=== PATIENT | male | born 1940 | race Caucasian/White ===

== ENCOUNTER → 2019-09-29 | Outpatient (CLI) | payer MEDICARE, OTHER ==
[~2019-09-29] MED LIST: ADALAT CC60 MG PO; AMITRIPTYLINE H25 M2 PO; CHEST CONGESTI400 MG PO; CRESTOR10 MG PO; CRESTOR40 MG PO; DITROPAN XL10 MG PO; FERROUS SULFAT325 MG PO; FIBER LAX625 MG PO; FLONASE 0.05%50 MCG NASAL; FORADIL12 MCG INH; GUAIFENESIN400 MG PO; IRON325 PO; NAPROSYN500 MG PO; NORCO 5-325 TA1 EACH PO; PRILOSEC40 MG PO; PROVENTIL HFA6.7 G1 INH; SPIRIVA18 MCG INH; ZYRTEC 10 MG TA10 MG PO; ZYRTEC10 MG PO
--- NOTE | 2019-09-29 14:11 | 2DMMODE ---
[place] [address] 2 D/M-MODE ECHOCARDIOGRAM Name: CLEMENTINA HOWE Room: [facility]#: [id number] Admission: 09/29/19 Attend Phys: Duarte Renteria, Discharge: Date of : 36 Date of Service: 09/29/19 1410 Report #: [id number] THIS REPORT FOR: //name// APPROVED REPORT Study performed: 09/29/2019 13:00:02 EXAM: Comprehensive 2D, Doppler, and color-flow Echocardiogram Patient Location: Out-Patient BSA: 2.05 HR: 108 bpm BP: 145/72 mmHg Other Information Study Quality: Good Indications COPD Atrial Fibrillation Dyspnea 2D Dimensions IVSd: 11.92 (7-11mm) LVOT Diam: 20.80 (18-24mm) LVDd: 48.81 mm PWd: 8.41 (7-11mm) Ascending Ao: 38.73 (22-36mm) LVDs: 28.64 (25-40mm) Aortic Root: 31.16 mm Volumes Left Atrial Volume (Systole) LA ESV Index: 33.60 mL/m2 Aortic Valve AoV Peak Sampson.: 1.01 m/s AO Peak Gr.: 4.12 mmHg LVOT Max P.18 mmHg AO Mean Gr.: 2.49 mmHg LVOT Mean P.65 mmHg LVOT Max V: 0.89 m/s AO V2 VTI: 17.65 cm LVOT Mean V: 0.60 m/s RENAN (VTI): 2.67 cm2 LVOT V1 VTI: 13.89 cm Mitral Valve MV Decel. Time: 160.71 ms MV PHT: 46.61 ms MVA (PHT): 4.72 [place]2 [place] [address] 2 D/M-MODE ECHOCARDIOGRAM Name: CLEMENTINA HOWE Room: [facility]#: [id number] Admission: 09/29/19 Attend Phys: Duarte Renteria, Discharge: Date of : 36 Date of Service: 09/29/19 1410 Report #: [id number] TDI Medial E' Sampson.: 0.17 m/s Lateral E' Sampson.: 0.16 m/s Pulmonary Valve PV Peak Sampson.: 0.86 m/s PV Peak Gr.: 2.95 mmHg Tricuspid Valve RAP Estimate: 5.00 mmHg TR Peak Gr.: 30.34 mmHg RVSP: 35.34 mmHg PA Pressure: 35.34 mmHg Left Ventricle The left ventricle is normal size. There is normal LV segmental wall motion. There is normal left ventricular wall thickness. Left ventricular systolic function is normal. The left ventricular ejection fraction is within the normal range. LVEF is 60-65%. This study is not technically sufficient to allow evaluation of the LV diastolic function due to atrial fibrillation. Right Ventricle The right ventricle is normal size. The right ventricular systolic function is normal. Atria Left atrium is mildly dilated. Right atrium is moderately dilated. Aortic Valve Mild aortic valve sclerosis. No aortic regurgitation is present. There is no aortic valvular stenosis. Mitral Valve The mitral valve is normal in structure. Mild to moderate mitral regurgitation. No evidence of mitral valve stenosis. Tricuspid Valve The tricuspid valve is normal in structure. Mild tricuspid regurgitation. Pulmonic Valve The pulmonary valve is normal in structure. Mild pulmonic regurgitation[place] [address] 2 D/M-MODE ECHOCARDIOGRAM Name: CLEMENTINA HOWE Room: [facility]#: [id number] Admission: 09/29/19 Attend Phys: Duarte Renteria, Discharge: Date of : 36 Date of Service: 09/29/19 1410 Report #: [id number] The aortic root is normal in size. IVC is dilated and collapses <50% with inspiration. Pericardium There is no pericardial effusion. <Conclusion> The left ventricle is normal size. There is normal left ventricular wall thickness. Left ventricular systolic function is normal. The left ventricular ejection fraction is within the normal range. LVEF is 60-65%. This study is not technically sufficient to allow evaluation of the LV diastolic function due to atrial fibrillation. The right ventricle is normal size. Right atrium is moderately dilated. Mild aortic valve sclerosis. No aortic regurgitation is present. There is no aortic valvular stenosis. The mitral valve is normal in structure. Mild to moderate mitral regurgitation. The tricuspid valve is normal in structure. Mild tricuspid regurgitation. IVC is dilated and collapses <50% with inspiration. There is no pericardial effusion. There is normal LV segmental wall motion. <ELECTRONICALLY SIGNED> By: Isak Alanis MD, FACC 09/29/19 1410 09 09 Isak Alanis MD, FACC /INF
--- NOTE | 2019-09-29 16:50 | CARDNUC ---
[place] [address] CARDIAC NUCLEAR IMAGING REPORT Name: CLEMENTINA HOWE Room: [facility]#: [id number] Admission: 09/29/19 Attend Phys: Duarte Renteria, Discharge: Date of : 36 Date of Service: 09/29/19 1649 Report #: [id number] THIS REPORT FOR: //name// APPROVED REPORT Study performed: 09/29/2019 15:33:29 Exam: Nuclear Stress Test Indication: Chest pain, Dyspnea Patient Location: Out-Patient Stress Tech: Lina Carrillo Stress Nurse: Angie Castrejon RN NM Tech:GER Becerra Ht: 6 ft 0 in Wt: 181 lbs BSA: 2.04 m2 BMI: 24.54 Medical History Medical History: Atrial Fibrillation, COPD, Fatigue, HTN, Hyperlipidemia Medications: eliquis, diltiazem, rosuvastatin, Allergies: gaby inhibitors Cardiac Risk Factors: Age, HTN, Hyperlipidemia, Tobacco History (Former) Previous Cardiac Procedures: none Exercise History: Sedentary Stress Test Details Stress Test: Pharmacologic stress testing performed using 0.4 mg of regadenoson per 5 mL given IV over 10 seconds. Reason for pharmacologic stress test: physical limitation, a fib. Reversal agent Aminophyline 60 mg, given intravenously for soa. HR Resting HR: 105 bpm Max Heart Rate (APMHR): 139 bpm Max HR Achieved: 120 bpm Target HR (85% APMHR): 118 bpm % of APMHR: 86 Recovery HR: 115 bpm BP Resting BP: 139/98 mmHg Max BP: 143/84 [place] [address] CARDIAC NUCLEAR IMAGING REPORT Name: CLEMENTINA HOWE Room: [facility]#: [id number] Admission: 09/29/19 Attend Phys: Duarte Renteria, Discharge: Date of : 36 Date of Service: 09/29/19 1649 Report #: [id number] ECG Resting ECG: Atrial Fibrillation Stress ECG: Atrial Fibrillation ST Change: None Recovery ECG: Atrial Fibrillation Recovery ST Change: None Clinical Reason for Termination: Completed protocol Exercise duration: 0 min sec Exercise capacity: 1 METs The patient tolerated Lexiscan infusion without significant cardiac symptoms. Nurse Comments pt on o2 and in wheelchair, unable to walk on treadmill Stress ECG Conclusion The baseline 12-lead EKG shows atrial fibrillation without significant ST segment abnormality. EKGs obtained during and post Lexiscan infusion showed continued atrial fibrillation without significant ST segment abnormality. There were no stress-induced arrhythmias. NM EXAM: Myocardial Perfusion REST/STRESS Imaging Protocol: Rest Tc-99m/Stress Tc-99m 1 day Resting Data Rest SPECT myocardial perfusion imaging was performed in supine position 30 minutes following the intravenous injection of 11.0 mCi of Tc-99m Sestamibi. Time of rest injection: 1400 Date: 09/29/2019 The images were gated to evaluate regional wall motion and calculate left ventricular ejection fraction. Administration Route: IV Administration Site: Right AC Pharmacologic Stress Pharmacologic stress test was performed by injecting Regadenoson 0.4 mg IV push followed by the intravenous injection of 35.0 mCi of Tc-99m Sestamibi. Time of stress injection: 1530 Date: 09/29/2019 Administration Route: IV Administration Site: Right AC Gated Stress SPECT was performed 40 [place] [address] CARDIAC NUCLEAR IMAGING REPORT Name: CLEMENTINA HOWE Room: [facility]#: [id number] Admission: 09/29/19 Attend Phys: Duarte Renteria, Discharge: Date of : 36 Date of Service: 09/29/19 1649 Report #: [id number] The images were gated to evaluate regional wall motion and calculate left ventricular ejection fraction. Stress only was performed in the Supine position. Study Quality Study: Good Study Data At rest, the left ventricular ejection fraction was 52%.. Post stress, the left ventricular ejection was 40%.. TID = 1.10. Perfusion Perfusion images show a moderate region of photopenia involving the inferior wall that is more pronounced on rest than stress images. Wall motion in this region appears relatively normal suggesting diaphragmatic attenuation artifact. There is a small moderate intensity reversible defect involving the basal lateral wall. Wall Motion Global LV systolic function appears mildly decreased without obvious focal wall motion abnormality. Nuclear Conclusion ECG Findings: negative for ischemia Clinical Findings: negative for ischemia Nuclear Findings: positive for ischemia Exercise Capacity: not assessed Left Ventricular Function: abnormal Risk Study: moderate Myocardial perfusion images suggest stress-induced ischemia of the basal portion of the lateral wall. There is mild global LV systolic dysfunction. This is a moderate risk study. <Conclusion> The baseline 12-lead EKG shows atrial fibrillation without significant ST segment abnormality. EKGs obtained during and post Lexiscan infusion showed continued atrial fibrillation without significant ST segment abnormality. There were no stress-induced arrhythmias. <ELECTRONICALLY SIGNED> By: Duarte Renteria MD, FACC 09/29/191648 48 48 Duarte Renteria MD, FACC /INF
== END ==
LOC: M.CRD 09-17 09:42
DX: I08.8 Other rheumatic multiple valve diseases (principal); I48.20 Chronic atrial fibrillation, unspecified; J44.9 Chronic obstructive pulmonary disease, unspecified; I10 Essential (primary) hypertension; E78.5 Hyperlipidemia, unspecified; Z87.891 Personal history of nicotine dependence

== ENCOUNTER → 2019-10-12 | Outpatient (CLI) | payer MEDICARE, OTHER ==
[~2019-10-12] VITALS: Ht 182.9 cm; Wt 80.3 kg
[2019-10-12 11:20] VITALS: BP 117/73
[2019-10-12 11:42] LABS: HEMATOCRIT 31.7 % (42.0-52.0); HEMOGLOBIN 10.4 gm/dL (14.0-18.0); MCH 31.8 pg (26.0-34.0); MCHC 32.7 g/dL (28.0-37.0); MCV 97.1 fL (80.0-100.0); MPV 9.4 fl. (7.2-11.1); RBC 3.26 mil/uL (4.50-6.00); RDW-CV 15.1 % (10.5-14.5); WBC 3.3 thou/uL (4.0-11.0)
[2019-10-12 11:54] LABS: APTT 27.7 Seconds (25.0-31.3); PROTIME 10.7 Seconds (9.20-11.50)
[2019-10-12 13:01] LABS: ANION GAP 5 mmol/L (7-16); BUN 19 mg/dL (7-18); CALCIUM 8.9 mg/dL (8.5-10.1); CHLORIDE 103 mmol/L (98-107); CO2 33 mmol/L (21-32); CREATININE 0.7 mg/dL (0.6-1.3); GLUCOSE 102 mg/dL (70-99); POTASSIUM 4.2 mmol/L (3.5-5.1); SODIUM 141 mmol/L (136-145)
[2019-10-12 13:05] LABS: ALBUMIN 3.8 g/dL (3.4-5.0); ALKALINE PHOSPHATASE 73 U/L (46-116); CHOLESTEROL 145 mg/dL (<200); HDL CHOLESTEROL 75 mg/dL (>40); LDL CHOLESTEROL 62 mg/dL (<100); SGOT 21 U/L (15-37); SGPT 31 U/L (30-65); TC:HDL 1.9 Ratio (Not establshd); TOTAL PROTEIN 6.5 g/dL (6.4-8.2); TRIGLYCERIDE 40 mg/dL (<150); VLDL 8 mg/dL (<40)
[2019-10-12 13:06] LABS: SERUM ASSESSMENT Clear
[2019-10-12 15:15] VITALS: BP 110/70
[2019-10-12 15:30] VITALS: BP 110/74
[2019-10-12 15:45] VITALS: BP 111/62
[2019-10-12 16:00] VITALS: BP 112/65
--- NOTE | 2019-10-12 17:10 | EKG ---
[place] [address] ELECTROCARDIOGRAM REPORT Name: CLEMENTINA HOWE Room: [facility]#: [id number] Admission: 10/12/19 Attend Phys: Duarte Renteria MD Discharge: Date of : 36 Report #: [id number] THIS REPORT FOR: //name// [facility] Test Date: 2019-10-12 Test Time: 11:23:03 Pat Name: CLEMENTINA SHYAM Department: Room: Gender: M Cook Barbecue: : 1940 Requested By: Duarte Renteria Order Number: [id number] Reading MD: Duarte Renteria Measurements Intervals [place] Rate: 102 P: MO: QRS: 71 QRSD: 98 T: 29 QT: 360 QTc: 469 Interpretive Statements Atrial fibrillation Low voltage, extremity leads Compared to ECG 04/22/2006 23:27:02 Low QRS voltage now present Sinus rhythm no longer present Electronically Signed On 10-12-2019 17:10:32 [employer] SPECIAL[employer] by Duarte Renteria [email or web address] <ELECTRONICALLY SIGNED> By: Duarte Renteria MD, [facility] 10/12/19 1710 1123 22 Duarte Renteria MD, FACC /EPI
--- NOTE | 2019-10-12 17:53 | CARD ---
[address] [address] CARDIAC CATH REPORT Name: CLEMENTINA HOWE Room: [facility]#: [id number] Admission: 10/12/19 Attend Phys: Duarte Renteria MD Discharge: Date of : 36 Report #: [id number] THIS REPORT FOR: //name// APPROVED REPORT Study performed: 10/12/2019 13:53:09 Patient Details The patient is a 79 year-old male Event Personnel Duarte Renteria Mechanical Design Engineer Products, Vincent Crowe [employer]KING [employer] Monitor, Coby Cobb RTR Scrub, Elly Garcia RN Supervisor [employer] Procedures Performed Left Heart Cath w/or w/o Coronaries [id number] [facility] Procedure Narrative A 6fr Ultimum Sheath sheath was inserted into the RFA. Coronary angiography was performed using coronary diagnostic catheters. The right coronary system was accessed and visualized with a 3DRC catheter. The left coronary system was accessed and visualized with a JL 3.5 catheter. The left ventricle was accessed and visualized with a PIG catheter. The patient tolerated the procedure well and there were no complications associated with the procedure. Intraoperative Conscious Sedation Fentanyl 25 mcg Dose: 1164 mGy Contrast Type and Amount: Visipaque 150 ml Coronary Angiography The patient's coronary anatomy is right dominant. Diagnostic Cath Left Main The left main is normal and bifurcates into the LAD and circumflex coronary arteries. LAD Left anterior descending coronary artery is normal in its proximal mid and distal portion. Diagonal 1 Normal and [id number] in size. Diagonal 2 Normal and small in size. Circumflex The circumflex is normal and terminates distally and a large branched obtuse marginal branch. OM1 The first obtuse marginal [place] [address] CARDIAC CATH REPORT Name: CLEMENTINA HOWE Room: [facility]#: [id number] Admission: 10/12/19 Attend Phys: Duarte Renteria MD Discharge: Date of : 36 Report #: [id number] normal. Right Coronary The right coronary artery is normal in its proximal mid and distal portion. R PDA Right PDA is normal. RPLV The right posterior lateral branch is a large branched vessel that is normal. Left Ventriculography The left ventricle is normal in size with normal contractility. The left ventricular ejection fraction is estimated to be 55-60%. Left ventricular wall motion abnormalities are not present. Conclusion 1. Normal coronary arteries 2. Normal left jugular end-diastolic pressure 3. Normal left ventricular systolic function Recommendations 1. Continue current medical management. <ELECTRONICALLY SIGNED> By: Duarte Renteria MD, [facility] 10/12/19 1753 [id number] MD, FACC /INF
== END | disposition home or self-care (01) ==
LOC: M.CL 10:29
PROVIDERS: Internal Medicine Cardiovascular Disease
DX: R07.9 Chest pain, unspecified (principal); I48.20 Chronic atrial fibrillation, unspecified; I10 Essential (primary) hypertension; E78.2 Mixed hyperlipidemia; J44.9 Chronic obstructive pulmonary disease, unspecified; Z98.890 Other specified postprocedural states; Z79.01 Long term (current) use of anticoagulants; Z79.899 Other long term (current) drug therapy; Z90.49 Acquired absence of other specified parts of digestive tract; Z87.891 Personal history of nicotine dependence

== ENCOUNTER → 2019-10-19 | Outpatient (CLI) | payer MEDICARE, OTHER | LOC: M.ULTRA 14:27 | DX: M79.81 Nontraumatic hematoma of soft tissue (principal); G89.18 Other acute postprocedural pain ==

== ENCOUNTER → 2020-02-17 | Outpatient (CLI) | payer MEDICARE, OTHER | LOC: M.WC 09:49 | DX: T81.89XA Other complications of procedures, not elsewhere classified, initial encounter (principal); I48.91 Unspecified atrial fibrillation; J43.9 Emphysema, unspecified; Z87.891 Personal history of nicotine dependence; Z90.49 Acquired absence of other specified parts of digestive tract; Y92.89 Other specified places as the place of occurrence of the external cause; Y83.8 Other surgical procedures as the cause of abnormal reaction of the patient, or of later complication, without mention of misadventure at the time of the procedure ==

== ENCOUNTER → 2020-02-24 | Outpatient (CLI) | payer MEDICARE, OTHER | LOC: M.WC 01:38 | DX: T81.89XD Other complications of procedures, not elsewhere classified, subsequent encounter (principal); I48.91 Unspecified atrial fibrillation; J43.9 Emphysema, unspecified; Z87.891 Personal history of nicotine dependence; Z90.49 Acquired absence of other specified parts of digestive tract; Y83.8 Other surgical procedures as the cause of abnormal reaction of the patient, or of later complication, without mention of misadventure at the time of the procedure ==

== ENCOUNTER → 2020-02-25 | Outpatient (CLI) | payer MEDICARE, OTHER | LOC: M.WC 11:00 | DX: T81.31XD Disruption of external operation (surgical) wound, not elsewhere classified, subsequent encounter (principal); I48.91 Unspecified atrial fibrillation; J43.9 Emphysema, unspecified; Z87.891 Personal history of nicotine dependence; Z90.49 Acquired absence of other specified parts of digestive tract; Y83.8 Other surgical procedures as the cause of abnormal reaction of the patient, or of later complication, without mention of misadventure at the time of the procedure ==

== ENCOUNTER → 2020-03-02 | Outpatient (CLI) | payer MEDICARE, OTHER | LOC: M.WC 04:56 | DX: T81.31XD Disruption of external operation (surgical) wound, not elsewhere classified, subsequent encounter (principal); I48.91 Unspecified atrial fibrillation; J43.9 Emphysema, unspecified; Z87.891 Personal history of nicotine dependence; Y83.8 Other surgical procedures as the cause of abnormal reaction of the patient, or of later complication, without mention of misadventure at the time of the procedure ==

== ENCOUNTER → 2020-09-11 | Outpatient (CLI) | payer MEDICARE, OTHER | LOC: M.ULTRA 14:30 | PROVIDERS: ATTEND Internal Medicine Hematology & Oncology | DX: R92.2 Inconclusive mammogram (principal); N63.20 Unspecified lump in the left breast, unspecified quadrant ==

== ENCOUNTER → 2020-12-01 | Outpatient (CLI) | payer MEDICARE, OTHER ==
[~2020-12-01] VITALS: Ht 182.9 cm; Wt 76.7 kg
[~2020-12-01] MED LIST changes: +ALBUTEROL0.63 MG/3 INH; +ALVESCO6.1 GM INH; +AMITRIPTYLINE H25 M4; +CARTIA XT240 M1; +CARTIA XT240 M1 PO; +ELIQUIS5 MG; +FLOMAX0.4 MG PO; +NORCO 10-325 T1 EACH PO; +OLODATEROL/TIOTROP INH; +PROAIR RESPICL90 MCG; +PROSCAR 5MG TABL5 M1 PO; +ZYRTEC10 MG
[2020-12-01 09:01] LABS: HEMATOCRIT 29.1 % (42.0-52.0); HEMOGLOBIN 9.4 gm/dL (14.0-18.0); MCH 29.2 pg (26.0-34.0); MCHC 32.3 g/dL (28.0-37.0); MCV 90.6 fL (80.0-100.0); MPV 9.1 fl. (7.2-11.1); NUCLEATED RBCS 0 /100WBC; PLATELET COUNT* 426 thou/uL (150-400); RBC 3.21 mil/uL (4.50-6.00); RDW-CV 16.4 % (10.5-14.5); WBC 2.3 thou/uL (4.0-11.0)
[2020-12-01 09:05] VITALS: BP 124/70
[2020-12-01 09:10] LABS: CALCIUM 9.4 mg/dL (8.5-10.1); CREATININE 0.9 mg/dL (0.6-1.3); POTASSIUM 4.2 mmol/L (3.5-5.1)
[2020-12-01 09:11] VITALS: BP 124/70
[2020-12-01 09:13] LABS: APTT 28.5 Seconds (25.0-31.3); PROTIME 11.1 Seconds (9.20-11.50)
[2020-12-01 09:34] LABS: ABSOLUTE LYMPHOCYTES 0.8 thou/uL (0.8-5.3); ABSOLUTE MONOCYTES 0.3 thou/uL (0.0-1.2); ABSOLUTE NEUTROPHILS 1.2 thou/uL (1.6-8.1); ANISOCYTOSIS 1+; ATYPICAL LYMPHS 1 %; PLATELET ESTIMATE INCREASED; POIKILOCYTOSIS 1+
[2020-12-01 09:35] LABS: LARGE PLATELETS OCCASIONAL; OVALOCYTES Occasional
[2020-12-01 10:21] VITALS: BP 125/68
[2020-12-01 10:41] VITALS: BP 113/66
[2020-12-01 10:54] VITALS: BP 110/56
--- NOTE | 2020-12-12 15:07 | PATH ---
[address] [address] PATHOLOGY RPT PROCEDURE Name: CLEMENTINA HOWE Room: [facility] Raquel.Kandy.#: [id number] Admission: 12/01/20 Date of : 36 Discharge: Report #: [id number] Path Case #: [id number] [facility] Accession Number: [id number] . 01 Material submitted: . PART A: bone - BONE MARROW BIOPSY PART B: bone - BONE MARROW CLOT PART C: bone - BONE MARROW ASPIRATE SLIDES PART D: peripheral nerves - PERIPHREAL SMEAR PART E: bone - BONE MARROW SEND OUT . 01 Clinical history: . 80-year-old man with leukopenia and anemia. . 02 Diagnosis: Bone marrow aspirate, biopsy, cell clot, and peripheral: - Peripheral blood with mild to moderate leukopenia and moderate normocytic anemia. - Hypercellular bone marrow with trilineage hematopoiesis, dyspoiesis, myeloid hyperplasia/erythroid hypoplasia, increased/focally clustered megakaryocytes and borderline mildly increased blasts. - Minor CD5 positive clonal B-cell population detected by flow cytometry only. - See comment. (SOCORROW:eneida 12/11/2020) . . Special studies report received from [facility], [address] [place] [address], [address], [place], [address], on case [id number], labeled with their number [id number], dated 12/05/2020. . Flow Cytometry: Hematologic Neoplasia Assessment . Clinical History . . Indication for Study Evaluation for hematolymphoid neoplasia . Specimen Bone Marrow . Viability 94% (7AAD exclusion) . Interpretation Bone Marrow: 1. 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 Comments These results are suspicious for a marrow disorder. The immunophenotypic changes detected in the myeloid population are characterized by; left shifted maturation, increased CD56 and decreased CD64. These changes have been associated with MDS andMPN. However, similar pattern changes can be seen after toxic exposure (e.g. chemotherapy), severe infection (e.g. sepsis) and prolonged sample storage. The requested cytogenetic and FISH studies have been ordered and will be reported separately upon completion. If needed, FISh and/or molecular analysis for BCR/ABL and/or JAK2 testing are available. Also detected is a small CD5+, monoclonal B-cell population (0.1%) compatible with an MBL (CLL- type). Correlation with available clinical, laboratory, and morphologic data is recommended. . Populations Analyzed Myeloid Blasts: 2.4% The blasts have a myeloid phenotype with expression of CD13, CD33, CD117 and the stem cell profile; CD34, CD38 and HLA-DR; Partial CD56 and CD7 Lymphocytes: 5% B-cells: 0.1%, polytypic/polyclonal sIg light chain pattern T-cells: no significant abnormalities of the markers tested CD4+ T-cells: 2.3% (including 0.1% CD57+ cells) CD8+ T-cells: 1.0% (including 0.3% CD57+ cells) CD4:CD8: 2.3 NK cells: 1.9% Abnormal B-cells: 0.1% Scatter properties compatible with small to intermediate cell size, cells characterized as: CD45+, CD5+, CD10-, CD11b-, CD11c-/+, CD19+, CD20+ (dim), CD22+ (dim), CD23+, CD38-, FMC7-, HLA-DR+, sIg lambda+ (dim) Neutrophilic Cells: 87% Left shifted maturation, increased CD56 (approximately 15% of neutrophilic cells positive) and decreased CD64. Monocytic Cells: 3% Decreased CD14; partial CD56 (approximately positive) Eosinophils: 1% No relative increase Basophils: 0.6% No relative increase Plasma Cells: 0.02% Few detected; no overt abnormalities of the surface markers tested (plasma cells are typically underrepresented by flow cytometry; cytoplasmic light chains were not assessed) Hematogones: 0.05% Normal B-cell precursors CD45 Negative 0.3% No significant reactivity with the markers tested Events/Debris: (may represent unlysed red blood cells, [place] [address] PATHOLOGY RPT PROCEDURE Name: CLEMENTINA HOWE Room: [facility]#: [id number] Admission: 12/01/20 Date of : 36 Discharge: Report #: [id number] Path Case #: [id number] precursors, platelets, debris, etc.)(erythroid precursors may be underrepresented due to sample lysis/processing) . Morphologic Evaluation A slide was reviewed for quality assurance coach purposes only. . Specimen Description Cell Yield: 12.02 x 10 and 6 . Reagent(s) Used CD2, CD3, CD4, CD5, CD7, CD8, CD10, CD11b, CD11c, CD13, CD14, CD15, CD16, CD19, CD20, CD22, CD23, CD33, CD34, CD38, CD45, CD56, CD57, CD64, CD103, CD117, FMC-7, HLA-DR, kappa, lambda . at [facility]. Devan Arnold MD Pathologist . . Intended Use Flow cytometry is optimally used to immunophenotypically characterize abnormal populations when they are detected. Negative flow cytometry results do not exclude lymphoma or neoplasia. Possible false negative flow cytometry results may occur in, but are not limited to, the following: neoplastic cells in Hodgkin lymphoma are not typically adequately represented by routine clinical flow cytometry; neoplastic cells may be lost or inadequately represented due to degeneration, sample processing, sampling artifact, or patchy involvement; plasma cells are typically underrepresented by flow cytometry; immature cells/blasts may be underrepresented due to hemodilution; myeloproliferative disorders and low grade myelodysplasia may not have immunophenotypic abnormalities or increased blasts. Correlation with all available clinical, laboratory, and morphologic data is always necessary to assess for the possibility of false negative flow cytometry results and to establish a diagnosis. Each marker in this analysis was used to assess for potential antigenic abnormalities or to evaluate detected abnormalities. . Any image or images that accompany this report are ambulatory services representative images only and should not be used to render a diagnosis. . Disclaimer(s) This test was developed and its performance characteristics determined by [employer]. It has not been cleared or approved by the Food and Drug Administration. . Performing Labs [facility] [place] [address] PATHOLOGY RPT PROCEDURE Name: CLEMENTINA HOWE [facility] [id number] Admission: 12/01/20 Date of : 36 Discharge: Report #: [id number] Path Case #: [id number] [employer] a wholly-owned subsidiary of [employer]. . This test was performed at [facility]. at [facility] [place] [address], [address] - Director Of Operations: Alexandro Richmond MD. . For inquiries, the physician may contact Lab: [phone] . A complete copy of the report is on file. . Professional services performed by [employer]. at [address] [facility] [address], [place] [address]. Technical services performed by [employer]. at [facility] [facility] [address], [place] [address]. . (CLW:danny 12/05/2020) . . . Special studies report received from [facility], [address] [place] [address] [address], [place], [address], on case [id number], labeled with their number [id number], dated 12/07/2020. . Fluorescence in situ Hybridization (FISH) Report [employer] Analysis . RESULT: No assay specific abnormalities detected by MDS FISH panel . . Specimen Type: Bone Marrow . Indication for Study: Evaluate for MDS. . . INTERPRETATION: Fluorescence in situ hybridization (FISH) analysis was performed on this patient's specimen using DNA probes for MDS panel. Two hundred interphase nuclei were examined for each probe and the signal patterns did not reveal any assay specific abnormalities. Based on the performance characteristics established on this assay, all test values were within the normal reference range. . Genetic changes other than those assayed here cannot be ruled out on the basis of this testing. Correlation with cytogenetic, clinical and pathological findings is suggested for a complete interpretation of the results. . See Flow Cytometry report [id number] for [place] [address] PATHOLOGY RPT PROCEDURE Name: CLEMENTINA HOWE Room: [facility]#: [id number] Admission: 12/01/20 Date of : 36 Discharge: Report #: [id number] Path Case #: [id number] Cytogenetic report [id number] for further information. . The following [employer] FISH analysis was performed on this patient's specimen: Probe Detection Parameters Result ISCN FGF10/CSF1R, Detects a deletion/monosomy Not Detected nuc poly(FGF10, RPS14 of chromosome 5 CSF1R, RPS14)x2 (5p12/5q33) (200) D7Z1/MDFIC Detects a deletion/monosomy Not Detected nuc poly(D7Z1, (7cen/7q31) of chromosome 7 MDFIC)x2(200) NINL/PTPRT Detects a deletion/monosomy Not Detected nuc poly(NINL, (20p11/20q12) of chromosome 20 PTPRT)x2(200) D8Z1/MYC Detects a trisomy 8 Not Detected nuc poly(D8Z1, (8cen/8q24) MYC)x2(200) . . at [employer]. Anneliese Dempsey, Ph.D., [facility] Director of Cytogenetics . Methodology: The patient specimen is processed onto a glass slide. Fluorescent DNA probe(s) is(are) applied to the cells on the slide under conditions of denaturation followed by hybridization. Stringency washes are applied and the slide is subsequently counterstained. A minimum of 100 interphase nuclei are analyzed unless otherwise indicated above. . Intended Use: This assay is considered qualitative and is not intended to be used as a measure of quantitative comparison. . Disclaimer This Test was performed by [employer]. at [address] [place] [address], [facility]. . [facility] is a business unit of [employer] a wholly-owned subsidiary of [employer]. . . Any image(s) that accompany this report is/are a ambulatory services representative image(s) only and should not be used to render a diagnosis. . This test was developed and its performance characteristics determined by [employer]. It has not been cleared or approved by the Food and Drug Administration. . A complete copy of [place] [address] PATHOLOGY RPT PROCEDURE Name: CLEMENTINA HOWE Room: [facility]#: [id number] Admission: 12/01/20 Date of : 36 Discharge: Report #: [id number] Path Case #: [id number] . Professional services performed by [facility], [address] [place] [address], [place] [address], [place], [address]. Technical services performed by [facility], [address] [place] [address], [place] [address], [place], [address]. . CLW:benoit; 12/07/2020 . . . . . Special studies report received from [facility], [address] [place] [address], [place] [address], [place], [address], on case [id number], labeled with their number [id number], dated 12/11/2020. . Cytogenetic Analysis Report . RESULT: Normal Male Karyotype 46,XY(20) . Specimen Type: Bone Marrow . Indication for Study: MDS . INTERPRETATION: Cytogenetic analysis revealed no evidence of an acquired clonal abnormality. These findings should be interpreted in the context of clinical and histopathologic findings. . See Flow Cytometry report [id number] for further information. See FISH report [id number] for further information. . . Number of Metaphases Counted: 20 Banding: G-banding Number of Metaphase Cells Analyzed: 20 Band Level: 375 Number of Metaphase Cells Karyotyped: 2 Cultures Established: 24/48 hour unstimulated . at [employer]. Anneliese Dempsey, Ph.D., [facility] Director of Cytogenetics . Disclaimer(s): Any image(s) that accompany this report is/are a ambulatory services representative image(s) only and should not be used to render a diagnosis. . Based on the resolution of this study, standard cytogenetic methodology does not routinely detect subtle or sub-microscopic [place] [address] PATHOLOGY RPT PROCEDURE Name: CLEMENTINA HOWE Room: [facility].#: [id number] Admission: 12/01/20 Date of : 36 Discharge: Report #: [id number] Path Case #: [id number] level mosaicism. . Performing Labs: This Test was performed at [employer]. at [address] [place] [address]. [facility] is a business unit of [employer] a wholly-owned subsidiary of [employer]. . A complete copy of the report is on file. . Professional services performed by [employer]. at [address] [place] [address]. Technical services performed by [employer]. at [address] [place] [address]. . (CLW:danny 12/11/2020) [place] 12/11/2020 1600 Local . 02 Comment: Overall the bone marrow is hypercellular for the patient's age with trilineage hematopoiesis, trilineage dyspoiesis, myeloid hyperplasia/erythroid hypoplasia, increased/focally clustered megakaryocytes and boderline mildly increased blasts. There are 4-5% blasts by morphology. Flow cytometry identifies atypical myeloid findings suspicious for a dysmyelopoietic process. The findings are worrisome for a myelodysplastic syndrome or a mixed myelodysplastic syndrome/myeloproliferative neoplasm. Additionally, there is a minor CD5 positive clonal B-cell population identified by flow cytometry. This may represent a monoclonal B-cell lymphocytosis or if extramedullary tissue involvement is present, minor bone marrow involvement by B-cell lymphoma. Correlation with clinical history, additional laboratory data, radiographic findings and cytogenetics is required. (CLW:[facility] 12/11/2020) . 02 Electronically signed: . Jo Mckeon MD, Pathologist NPI- [id number] . 01 Gross description: . A. The specimen is received in formalin, labeled "Clementina Howe, core". Received is a single needle core of light antoine bone measuring 2.7 cm in length by 0.3 cm in diameter. The specimen is submitted entirely in cassette A1, following light decalcification. . B. The specimen is received in formalin, labeled "Clementina Howe, clot". Received is blood coagulum measuring 3.0 x 1.5 x 1.0 cm in aggregate dimensions. The specimen is filtered [place] [address] PATHOLOGY RPT PROCEDURE Name: CLEMENTINA HOWE Room: [facility]#: [id number] Admission: 12/01/20 Date of : 36 Discharge: Report #: [id number] Path Case #: [id number] B1 and B2. (CAA; 12/01/2020) QAC/QAC 12/01/2020 1511 Local . 02 Microscopic: . CBC Data (12/01/2020): WBC 2,300 /uL, RBC 3.21, hemoglobin 9.4 g/dL, hematocrit 29.1%, MCV 90.6 fL, MCH 29.2 pg, MCHC 32.3 g/dL, RDW 16.4%, and platelet count 426,000 /uL. White blood cell differential: segs 54%, lymphs 32%, monos 11%, eos 2%, and atypical lymphs 1%. . Peripheral Blood Smear: Cytomorphological examination of the Graham's stained peripheral blood smear confirms the provided data. Red blood cells show moderate normocytic anemia with mild anisocytosis. No significant poikilocytosis is identified. White blood cells are mildly decreased in number. They are predominantly segmented neutrophils and are without significant dyspoiesis or significant left shift. Lymphocytes are predominantly small, round, and mature appearing with condensed chromatin and scant cytoplasm with admixed large granular lymphocytes and reactive appearing lymphocytes. Monocytes are mature. Platelets are adequate (borderline mildly increased) in number and mainly normal in morphology with rare larger platelets noted. . Aspirate Smears: Cytomorphological examination of the Graham's stained aspirate smears show disrupted spicules present. The rare small spicules appear hypercellular. The myeloid to erythroid ratio is 6:1. Full myeloid maturation is identified and is mildly dyspoietic with an increase in immature forms and nuclear/cytoplasmic abnormalities. Erythroid maturation is mildly dyserythropoietic with irregular nuclear contours and nuclear cytoplasmic dyssynchrony. In a 500 cell differential, there are 4-5% blasts (no Frannie rods are seen), 74% more differentiated myeloids, 12% erythroid precursors, 9% lymphocytes and less than 1% plasma cells. Megakaryocytes are proportional to mildly increased in number and both normal and abnormal in morphology. Numerous small/hypolobated forms are present. The small spicules have a suggestion of megakaryocyte clustering. No lymphoid aggregates or markedly atypical lymphoid cells are seen. Plasma cells are without atypia. Iron stain of the aspirate smear shows 1-2/4+ iron positivity with disrupted spicules present. No ringed sideroblasts are identified. . Core Biopsy and Cell Clot: The decalcified bone marrow core biopsy is adequate. The bone marrow is hypercellular with an overall cellularity of approximately 70%. The myeloid to erythroid ratio is mildly increased. Myeloid and erythroid maturation are mildly dyspoietic. Megakaryocytes are normal to mildly increased in number and both normal and abnormal in morphology. Focal megakaryocyte clustering is noted. No lymphoid aggregates or markedly atypical lymphoid cells are seen. Bony trabeculae [place] [address] PATHOLOGY RPT PROCEDURE Name: CLEMENTINA HOWE Room: [facility] Post#: [id number] Admission: 12/01/20 Date of : 36 Discharge: Report #: [id number] Path Case #: [id number] unremarkable. The cell clot has rare spicules present that are similar in cellularity and differential morphology as previously described. . Properly controlled special stains are performed. Block A1: Iron - 0/4+ iron positivity; Reticulin - No significant reticulin fibrosis. . Iron (blocks B1 and B2) - 1/4+ iron positivity with rare spicules present. . To confirm the flow cytometry findings and to identify cells in a tissue architectural context, properly controlled immunohistochemical stains are performed. Block A1: CD34 - Stains scattered cells, no markedly increased or abnormally localized blasts; CD117 - Mildly increased scattered blasts/promyelocytes; MPO - Confirms the mildly increased M/E ratio; Glycophorin A - Confirms the mildly increased M/E ratio; CD20 - Stains rare scattered small cells, no aggregates present; PAX - Stains rare scattered small B-cells, no aggregates present; CD3 - Stains scattered T-cells. . Flow Cytometry: Flow cytometric immunophenotypic analysis was performed at [facility] 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 There are 2.4% myeloid blasts. The blasts have a myeloid phenotype with expression of CD13, CD33, CD117 and the stem cell profile CD34, CD38, and HLA-DR. There is partial expression of CD56 and CD7. There are 5% lymphocytes. Of the lymphocytes, there are 0.1% polyclonal B-cells. T-cells have a CD4/CD8 ratio of 2.3 and no aberrant T-cell antigen expression. Additionally, there is a 0.1% population of abnormal B-cells that are small to intermediate in cell size and characterized as CD45 pos, CD5 pos, CD10 neg, CD11b neg, CD11c neg/pos, CD19 pos, CD20 pos (dim), CD22 pos (dim), CD23 pos, CD38 neg, FMC7 neg, HLA-DR pos, and surface lambda pos (dim). Neutrophilic and monocytic cells have partial CD56 co-expression and slight immunophenotypic aberrancies. Please see separate flow cytometry report from [facility] ([id number]). . Cytogenetics Analysis: Cytogenetic chromosomal analysis is performed at [facility]. The karyotype is 46,XY (20). The interpretation is a normal male karyotype. Cytogenetic analysis shows a normal male karyotype in all cell analyzed. Please see separate report from [facility] ([id number]). . FISH analysis for an MDS FISH panel was performed at [facility]. There are no assay specific abnormalities detected. [place] [address] PATHOLOGY RPT PROCEDURE Name: CLEMENTINA HOWE Room: [facility]#: [id number] Admission: 12/01/20 Date of : 36 Discharge: Report #: [id number] Path Case #: [id number] FISH analysis report from [facility] ([id number]). (CLW:eneida 12/11/2020) . 02 Pathologist provided ICD-10: D72.819, D50.9, D75.89 . 02 CPT . 295652, 476955, 145413, 111682, 969494, 773979, 288923, 952771, 513998, 573908, M98054, Y37076 Specimen Comment: A courtesy copy of this report has been sent to [phone] Specimen Comment: Report sent to Specimen Comment: A duplicate report has been generated due to demographic updates. Performed at: 01 [facility] [address] [facility] [address], [place] [id number] MD Danny Brooks MD Phone: [phone] Performed at: 02 [facility] [address] [id number] MD Lynn Chew MD Phone: [phone]
== END | disposition home or self-care (01) ==
LOC: M.INT 11-29 08:30
PROVIDERS: Radiology Diagnostic Radiology; ATTEND Internal Medicine Hematology & Oncology
DX: D72.819 Decreased white blood cell count, unspecified (principal); D50.9 Iron deficiency anemia, unspecified; D75.89 Other specified diseases of blood and blood-forming organs; Z98.890 Other specified postprocedural states; Z90.49 Acquired absence of other specified parts of digestive tract; Z79.899 Other long term (current) drug therapy; Z87.891 Personal history of nicotine dependence; Z88.8 Allergy status to other drugs, medicaments and biological substances

== ENCOUNTER → 2021-01-05 | Outpatient (CLI) | payer MEDICARE, OTHER | LOC: M.ULTRA 11:30 | PROVIDERS: ATTEND Physician Assistant | DX: M79.671 Pain in right foot (principal); M79.89 Other specified soft tissue disorders ==